=== PATIENT | female | born 1980 | race Caucasian/White ===

== ENCOUNTER 2020-05-17 10:29 | Emergency (ER) | payer OTHER ==
[~2020-05-17] VITALS: Ht 165.1 cm; Wt 86.4 kg
[2020-05-17 10:34] VITALS: BP 108/92
== END 2020-05-17 11:34 | disposition home or self-care (01) ==
LOC: EMS 10:29
DX: U07.1 COVID-19 (principal); I10 Essential (primary) hypertension; F12.90 Cannabis use, unspecified, uncomplicated
CPT/HCPCS: 99283; U0003